=== PATIENT | female | born 1940 | race Caucasian/White ===

== ENCOUNTER 2017-05-05 06:46 | Inpatient (IN) | payer MEDICARE, OTHER ==
[2017-05-05] MEDS ORDERED: PANTOPRAZOLE INJ 80 MG in SODIUM CHLORIDE 0.9% INJ 100 ML IV (07:04)
[2017-05-05] MEDS ORDERED: SODIUM CHLORIDE 0.9% FLUSH 10 ML FLUSH IVF (07:15)
[2017-05-05 07:19] LABS: AUTOMATED NEUTROPHIL # 7.9 TH/MM3 (1.8-7.7); BASOPHIL # 0.1 TH/MM3 (0-0.2); BASOPHIL % 0.8 % (0.0-2.0); EOSINOPHIL # 0.4 TH/MM3 (0-0.4); EOSINOPHIL % 3.7 % (0.0-4.0); HEMATOCRIT 24.6 % (35.0-46.0); HEMO FLAGS DIFF FINAL; HEMOGLOBIN 7.9 GM/DL (11.6-15.3); LYMPHOCYTE # 2.3 TH/MM3 (1.0-4.8); MEAN CELL VOLUME 96.1 FL (80.0-100.0); MEAN CORPUSCULAR HEMOGLOBIN 30.8 PG (27.0-34.0); MEAN PLATELET VOLUME 7.6 FL (7.0-11.0); MONO % 6.2 % (0.0-8.0); MONOCYTE # 0.7 TH/MM3 (0-0.9); NEUT % 69.3 % (16.0-70.0); PLATELET COUNT 295 TH/MM3 (150-450); RED BLOOD COUNT 2.56 MIL/MM3 (4.00-5.30); WHITE BLOOD COUNT 11.4 TH/MM3 (4.0-11.0)
[2017-05-05] MEDS: SODIUM CHLOR 0.9% 250 ML INJ 250 ML IV (07:30)
[2017-05-05 07:35] LABS: CHLORIDE 98 MEQ/L (98-107); POTASSIUM 4.8 MEQ/L (3.5-5.1); SODIUM (NA) 132 MEQ/L (136-145)
[2017-05-05 07:38] LABS: CALCIUM 8.3 MG/DL (8.5-10.1)
[2017-05-05 07:39] LABS: ALBUMIN 2.5 GM/DL (3.4-5.0); ANION GAP 12 MEQ/L (5-15); BICARBONATE 22.5 MEQ/L (21.0-32.0); BLOOD UREA NITROGEN 29 MG/DL (7-18); GLUCOSE,RANDOM 129 MG/DL (74-106); LIPASE 128 U/L (73-393)
[2017-05-05 07:41] LABS: APTT (PATIENT) 24.3 SEC (24.3-30.1); INTERNATIONAL NORMALIZED RATIO 1.1 RATIO; PROTHROMBIN TIME - PATIENT 10.7 SEC (9.8-11.6)
[2017-05-05 07:42] LABS: ALT (GPT) 13 U/L (10-53); AST (GOT) 17 U/L (15-37); CREATININE 0.67 MG/DL (0.50-1.00); GLOMERULAR FILTRATION RATE 85 ML/MIN (>89)
[2017-05-05 07:43] LABS: TOTAL BILIRUBIN ADULT 0.4 MG/DL (0.2-1.0); TOTAL PROTEIN 5.9 GM/DL (6.4-8.2)
[2017-05-05 07:44] LABS: ALKALINE PHOSPHATASE 53 U/L (45-117)
[2017-05-05 08:00] LABS: RBC COMMENT 1 1
[2017-05-05] MEDS: ONDANSETRON HCL 4 MG/2 ML VIAL IV PUSH (08:00)
[2017-05-05] MEDS: PANTOPRAZOLE INJ 80 MG in SODIUM CHLORIDE 0.9% INJ 35 ML IV (08:23)
[2017-05-05] MEDS: LACTATED RINGER'S 1000 ML IV ×2 (08:25→20:25)
[2017-05-05] MEDS: PANTOPRAZOLE INJ 80 MG in SODIUM CHLORIDE 0.9% INJ 100 ML IV ×2 (08:28→21:30)
[2017-05-05] MEDS ORDERED: POVIDONE IODINE 5% (ANTISEPSIS KIT) 4 APPLICATIONS EACH NARE (09:15)
[2017-05-05] MEDS ORDERED: CHLORHEXIDINE GLUCONATE 2 % 1 PACK (2 CLOTHS) TOPICAL (09:15)
[2017-05-05] MEDS ORDERED: METOPROLOL TARTRATE 25 MG TAB PO (09:15)
[2017-05-05] MEDS ORDERED: SODIUM CHLORID 0.9% 500 ML IV (09:15)
[2017-05-05] MEDS ORDERED: POTASSIUM PHOSPHATE INJ 30 MMOL in SODIUM CHLOR 0.9% 250 ML INJ 250 ML IV (11:45)
[2017-05-05] MEDS ORDERED: MAGNESIUM OXIDE 400 MG TAB PO (11:45)
[2017-05-05] MEDS ORDERED: MAGNESIUM SULFATE INJ 2 GM in SODIUM CHLORIDE 0.9% INJ 96 ML IV (11:45)
[2017-05-05] MEDS ORDERED: SODIUM PHOSPHATE INJ 30 MMOL in SODIUM CHLOR 0.9% 250 ML INJ 240 ML IV (11:45)
[2017-05-05] MEDS ORDERED: POTASSIUM CHLOR 20 MEQ PREMIX 100 ML IV ×2 (11:45)
[2017-05-05] MEDS ORDERED: MAGNESIUM SULFATE INJ 4 GM in SODIUM CHLORIDE 0.9% INJ 92 ML IV (11:45)
[2017-05-05] MEDS ORDERED: POTASSIUM CHLOR 40 MEQ PREMIX 100 ML IV ×2 (11:45)
[2017-05-05] MEDS ORDERED: POTASSIUM PHOSPHATE MONOBASIC 500 MG TAB PO/TUBE (11:45)
[2017-05-05] MEDS ORDERED: POTASSIUM PHOSPHATE MONOBASIC 500 MG TAB PO (11:45)
[2017-05-05] MEDS ORDERED: POTASSIUM CHLORIDE 25 MEQ EFFERVESCENT TAB PO (11:45)
[2017-05-05] MEDS ORDERED: ONDANSETRON HCL 4 MG/2 ML VIAL IV PUSH (12:00)
[2017-05-05] MEDS: MISCELLANEOUS NURSING INFORMATION XX (12:00)
[2017-05-05] MEDS ORDERED: SENNOSIDES 8.6 MG TAB PO (12:00)
[2017-05-05] MEDS ORDERED: BISACODYL 10 MG SUPP RECTAL (12:00)
[2017-05-05] MEDS ORDERED: SODIUM CHLORIDE 0.9% FLUSH 10 ML FLUSH IV FLUSH (12:00)
[2017-05-05] MEDS ORDERED: LORazepam 2 MG/ML VIAL IV PUSH (12:00)
[2017-05-05] MEDS ORDERED: LACTULOSE SYRUP 20 GM/30 ML CUP PO (12:00)
[2017-05-05] MEDS ORDERED: CHLORHEXIDINE GLUCONATE 2 % 1 PACK (2 CLOTHS) TOP (12:00)
[2017-05-05] MEDS ORDERED: MAGNESIUM HYDROXIDE SUSP 30 ML CUP PO (12:00)
[2017-05-05] MEDS ORDERED: MAGNESIUM CITRATE SOLN 300 ML BTL PO (14:30)
[2017-05-05 15:29] LABS: MRSA PCR SURVEILLANCE MRSA DETECTED (NOT DETECT)
[2017-05-05] MEDS: IOHEXOL 350 MG/ML 10 ML VIAL (for RAD DIAG) IVCONTRAST (15:34)
[2017-05-05] MEDS: OCTREOTIDE INJ 500 MCG in SODIUM CHLORID 0.9% 500 ML INJ 500 ML IV ×2 (17:05→23:58)
[2017-05-05] MEDS: LATANOPROST 0.005% OPHT SOLN 2.5 ML BTL EACH EYE (20:11)
[2017-05-05] MEDS: TEMAZEPAM 15 MG CAP PO (20:11)
[2017-05-05] MEDS: TIMOLOL MALEATE 0.5% OPHT SOLN 5 ML BTL EACH EYE (20:12)
[2017-05-05] MEDS: SODIUM CHLORIDE 0.9% FLUSH 10 ML FLUSH IV FLUSH (20:12)
[2017-05-05] MEDS: DOCUSATE SODIUM 50 MG/SENNA 8.6 MG TAB PO (20:12)
[2017-05-05 20:23] LABS: AUTOMATED NEUTROPHIL # 8.3 TH/MM3 (1.8-7.7); BASOPHIL % 0.4 % (0.0-2.0); EOSINOPHIL # 0.1 TH/MM3 (0-0.4); EOSINOPHIL % 0.9 % (0.0-4.0); HEMATOCRIT 27.5 % (35.0-46.0); HEMO FLAGS DIFF FINAL; LYMPH % 13.6 % (9.0-44.0); LYMPHOCYTE # 1.5 TH/MM3 (1.0-4.8); MEAN CELL VOLUME 94.3 FL (80.0-100.0); MEAN CORPUSCULAR HEMOGLOBIN 30.9 PG (27.0-34.0); MEAN CORPUSCULAR HGB CONC 32.8 % (32.0-36.0); MEAN PLATELET VOLUME 7.9 FL (7.0-11.0); MONO % 10.2 % (0.0-8.0); MONOCYTE # 1.1 TH/MM3 (0-0.9); NEUT % 74.9 % (16.0-70.0); PLATELET COUNT 212 TH/MM3 (150-450); RED BLOOD COUNT 2.92 MIL/MM3 (4.00-5.30); RED CELL DISTRIBUTION WIDTH 14.3 % (11.6-17.2); WHITE BLOOD COUNT 11.1 TH/MM3 (4.0-11.0)
[2017-05-05 20:40] LABS: ANION GAP 12 MEQ/L (5-15); BICARBONATE 23.5 MEQ/L (21.0-32.0); BLOOD UREA NITROGEN 23 MG/DL (7-18); CALCIUM 8.6 MG/DL (8.5-10.1); CHLORIDE 101 MEQ/L (98-107); CREATININE 0.52 MG/DL (0.50-1.00); GLOMERULAR FILTRATION RATE 114 ML/MIN (>89); GLUCOSE,RANDOM 108 MG/DL (74-106); SODIUM (NA) 136 MEQ/L (136-145)
[2017-05-05 20:51] LABS: POTASSIUM 4.7 MEQ/L (3.5-5.1)
[2017-05-05] MEDS: SODIUM CHLOR 0.9% 1000 ML INJ 1,000 ML IV (21:47)
[2017-05-05] MEDS: HYDROmorphone HCL PF 2 MG/ML VIAL IV (23:40)
[2017-05-06 00:47] LABS: HEMATOCRIT 24.8 % (35.0-46.0); REVIEW FLAG FINAL
[2017-05-06 00:47] LABS: HEMOGLOBIN 8.3 GM/DL (11.6-15.3)
[2017-05-06 00:51] LABS: BILIRUBIN, URINE NEG (NEG); BLOOD, URINE NEG (NEG); COMMENT (UR) CATH-CULT NOT IND; CULTURE IF INDICATED CATH CULTURE NOT IND; GLUCOSE,URINE NEG (NEG); KETONE, URINE 10 mg/dL (NEG); MUCUS URINE FEW /lpf (OCC); NITRITE,URINE NEG (NEG); PH, URINE 6.5 (5.0-8.5); SQUAMOUS EPITHELIAL CELL URINE <1 /hpf (0-5); URINE COLOR LIGHT-YELLOW (YELLW/STRAW); URINE LEUKOCYTE ESTERASE NEG (NEG)
[2017-05-06] MEDS: PANTOPRAZOLE INJ 80 MG in SODIUM CHLORIDE 0.9% INJ 100 ML IV ×3 (04:00→21:14)
[2017-05-06] MEDS: CHLORHEXIDINE GLUCONATE 2 % 1 PACK (2 CLOTHS) TOP (04:00)
[2017-05-06 06:36] LABS: AUTOMATED NEUTROPHIL # 7.1 TH/MM3 (1.8-7.7); BASOPHIL % 0.5 % (0.0-2.0); EOSINOPHIL # 0.2 TH/MM3 (0-0.4); EOSINOPHIL % 2.2 % (0.0-4.0); HEMATOCRIT 24.5 % (35.0-46.0); HEMO FLAGS DIFF FINAL; HEMOGLOBIN 8.2 GM/DL (11.6-15.3); LYMPH % 12.1 % (9.0-44.0); LYMPHOCYTE # 1.1 TH/MM3 (1.0-4.8); MEAN CELL VOLUME 96.2 FL (80.0-100.0); MEAN CORPUSCULAR HEMOGLOBIN 32.2 PG (27.0-34.0); MEAN CORPUSCULAR HGB CONC 33.5 % (32.0-36.0); MEAN PLATELET VOLUME 7.6 FL (7.0-11.0); MONOCYTE # 0.7 TH/MM3 (0-0.9); NEUT % 77.2 % (16.0-70.0); PLATELET COUNT 212 TH/MM3 (150-450); RED BLOOD COUNT 2.55 MIL/MM3 (4.00-5.30); RED CELL DISTRIBUTION WIDTH 14.1 % (11.6-17.2); WHITE BLOOD COUNT 9.2 TH/MM3 (4.0-11.0)
[2017-05-06 06:37] LABS: ANION GAP 8 MEQ/L (5-15); BICARBONATE 23.3 MEQ/L (21.0-32.0); BLOOD UREA NITROGEN 16 MG/DL (7-18); CHLORIDE 104 MEQ/L (98-107); CREATININE 0.44 MG/DL (0.50-1.00); GLOMERULAR FILTRATION RATE 139 ML/MIN (>89); GLUCOSE,RANDOM 111 MG/DL (74-106); MAGNESIUM 1.9 MG/DL (1.5-2.5); POTASSIUM 4.4 MEQ/L (3.5-5.1); SODIUM (NA) 135 MEQ/L (136-145)
[2017-05-06] MEDS: TIMOLOL MALEATE 0.5% OPHT SOLN 5 ML BTL EACH EYE ×2 (08:46→22:03)
[2017-05-06] MEDS: SODIUM CHLORIDE 0.9% FLUSH 10 ML FLUSH IV FLUSH ×2 (08:46→22:04)
[2017-05-06] MEDS: DOCUSATE SODIUM 50 MG/SENNA 8.6 MG TAB PO ×2 (08:46→22:05)
[2017-05-06] MEDS: SODIUM CHLOR 0.9% 1000 ML INJ 1,000 ML IV (09:03)
[2017-05-06] MEDS: HYDROmorphone HCL PF 2 MG/ML VIAL IV ×3 (11:39→20:37)
[2017-05-06 13:05] LABS: HEMATOCRIT 26.9 % (35.0-46.0); REVIEW FLAG FINAL
[2017-05-06 13:05] LABS: HEMOGLOBIN 8.9 GM/DL (11.6-15.3)
[2017-05-06 13:33] LABS: HEMOGLOBIN A1C 5.4 % (4.3-6.0)
[2017-05-06] MEDS: OCTREOTIDE INJ 500 MCG in SODIUM CHLORID 0.9% 500 ML INJ 500 ML IV (14:12)
[2017-05-06] MEDS ORDERED: DEXTROSE 5%-LACTATED RING INJ 1,000 ML IV (15:15)
[2017-05-06] MEDS: DEXTROSE 50% IN WATER 50 ML SYRINGE (16:03)
[2017-05-06] MEDS: D5-NS + KCL 20 MEQ INJ 1,000 ML IV (16:21)
[2017-05-06] MEDS: LATANOPROST 0.005% OPHT SOLN 2.5 ML BTL EACH EYE (21:00)
[2017-05-07] MEDS: OCTREOTIDE INJ 500 MCG in SODIUM CHLORID 0.9% 500 ML INJ 500 ML IV ×2 (03:43→09:10)
[2017-05-07] MEDS: D5-NS + KCL 20 MEQ INJ 1,000 ML IV (03:46)
[2017-05-07] MEDS: CHLORHEXIDINE GLUCONATE 2 % 1 PACK (2 CLOTHS) TOP ×2 (03:48→21:52)
[2017-05-07] MEDS: HYDROmorphone HCL PF 2 MG/ML VIAL IV ×4 (05:43→20:19)
[2017-05-07] MEDS: PANTOPRAZOLE INJ 80 MG in SODIUM CHLORIDE 0.9% INJ 100 ML IV ×2 (06:23→08:00)
[2017-05-07] MEDS: SODIUM CHLORIDE 0.9% FLUSH 10 ML FLUSH IV FLUSH ×2 (09:00→20:18)
[2017-05-07] MEDS: DOCUSATE SODIUM 50 MG/SENNA 8.6 MG TAB PO ×2 (09:09→20:18)
[2017-05-07] MEDS: TIMOLOL MALEATE 0.5% OPHT SOLN 5 ML BTL EACH EYE ×2 (09:10→20:17)
[2017-05-07] MEDS: PANTOPRAZOLE SODIUM 40 MG VIAL IV PUSH (16:19)
[2017-05-07] MEDS: LATANOPROST 0.005% OPHT SOLN 2.5 ML BTL EACH EYE (20:18)
[2017-05-08 08:15] LABS: AUTOMATED NEUTROPHIL # 5.6 TH/MM3 (1.8-7.7); BASOPHIL % 0.2 % (0.0-2.0); EOSINOPHIL # 0.5 TH/MM3 (0-0.4); EOSINOPHIL % 5.8 % (0.0-4.0); HEMO FLAGS DIFF FINAL; HEMOGLOBIN 7.7 GM/DL (11.6-15.3); LYMPH % 16.3 % (9.0-44.0); LYMPHOCYTE # 1.3 TH/MM3 (1.0-4.8); MEAN CELL VOLUME 95.6 FL (80.0-100.0); MEAN CORPUSCULAR HEMOGLOBIN 31.8 PG (27.0-34.0); MEAN CORPUSCULAR HGB CONC 33.2 % (32.0-36.0); MEAN PLATELET VOLUME 8.1 FL (7.0-11.0); MONO % 8.5 % (0.0-8.0); MONOCYTE # 0.7 TH/MM3 (0-0.9); NEUT % 69.2 % (16.0-70.0); PLATELET COUNT 229 TH/MM3 (150-450); RED BLOOD COUNT 2.41 MIL/MM3 (4.00-5.30); RED CELL DISTRIBUTION WIDTH 14.3 % (11.6-17.2); WHITE BLOOD COUNT 8.1 TH/MM3 (4.0-11.0)
[2017-05-08] MEDS: PANTOPRAZOLE SODIUM 40 MG VIAL IV PUSH ×2 (08:53→21:26)
[2017-05-08] MEDS: SODIUM CHLORIDE 0.9% FLUSH 10 ML FLUSH IV FLUSH ×2 (08:53→21:28)
[2017-05-08] MEDS: DOCUSATE SODIUM 50 MG/SENNA 8.6 MG TAB PO ×2 (08:53→21:00)
[2017-05-08] MEDS: HYDROmorphone HCL PF 2 MG/ML VIAL IV ×2 (08:54→21:40)
[2017-05-08 09:00] LABS: ALBUMIN 2.4 GM/DL (3.4-5.0); ALKALINE PHOSPHATASE 47 U/L (45-117); BLOOD UREA NITROGEN 3 MG/DL (7-18); CALCIUM 8.3 MG/DL (8.5-10.1); CREATININE 0.36 MG/DL (0.50-1.00); GLOMERULAR FILTRATION RATE 175 ML/MIN (>89); GLUCOSE,RANDOM 103 MG/DL (74-106); MAGNESIUM 1.6 MG/DL (1.5-2.5); TOTAL PROTEIN 5.4 GM/DL (6.4-8.2)
[2017-05-08] MEDS: TIMOLOL MALEATE 0.5% OPHT SOLN 5 ML BTL EACH EYE ×2 (09:00→21:27)
[2017-05-08 09:01] LABS: ALT (GPT) 12 U/L (10-53); ANION GAP 5 MEQ/L (5-15); AST (GOT) 13 U/L (15-37); BICARBONATE 29.6 MEQ/L (21.0-32.0); CHLORIDE 100 MEQ/L (98-107); POTASSIUM 3.8 MEQ/L (3.5-5.1); SODIUM (NA) 135 MEQ/L (136-145); TOTAL BILIRUBIN ADULT 0.3 MG/DL (0.2-1.0)
[2017-05-08 13:35] LABS: HEMOGLOBIN 7.7 GM/DL (11.6-15.3)
[2017-05-08 13:35] LABS: HEMATOCRIT 22.6 % (35.0-46.0); REVIEW FLAG FINAL
[2017-05-08] MEDS ORDERED: ACETAMINOPHEN 500 MG CPLT PO (17:30)
[2017-05-08] MEDS: ACETAMINOPHEN/HYDROcodone 325 MG/5 MG TAB PO (18:22)
[2017-05-08] MEDS: CHLORHEXIDINE GLUCONATE 2 % 1 PACK (2 CLOTHS) TOP (21:19)
[2017-05-08] MEDS: LATANOPROST 0.005% OPHT SOLN 2.5 ML BTL EACH EYE (21:27)
[2017-05-09] MEDS: diphenhydrAMINE HCL 25 MG CAP PO (01:18)
[2017-05-09] MEDS: ACETAMINOPHEN 325 MG TAB PO (01:21)
[2017-05-09] MEDS: SODIUM CHLOR 0.9% 250 ML INJ 250 ML IV (01:22)
[2017-05-09 02:03] LABS: RBC COMMENT 1 1
[2017-05-09] MEDS: ACETAMINOPHEN/HYDROcodone 325 MG/5 MG TAB PO ×2 (05:44→18:14)
[2017-05-09] MEDS: FUROSEMIDE 20 MG/2 ML VIAL IV PUSH (05:49)
[2017-05-09] MEDS: TIMOLOL MALEATE 0.5% OPHT SOLN 5 ML BTL EACH EYE ×2 (09:00→22:36)
[2017-05-09] MEDS: PANTOPRAZOLE SODIUM 40 MG VIAL IV PUSH ×2 (09:35→20:18)
[2017-05-09] MEDS: DOCUSATE SODIUM 50 MG/SENNA 8.6 MG TAB PO ×2 (09:35→20:17)
[2017-05-09] MEDS: SODIUM CHLORIDE 0.9% FLUSH 10 ML FLUSH IV FLUSH ×2 (09:35→22:36)
[2017-05-09] MEDS ORDERED: SODIUM CHLORID 0.9% 500 ML IV (10:45)
[2017-05-09] MEDS ORDERED: LACTATED RINGER'S 1000 ML IV (10:45)
[2017-05-09] MEDS ORDERED: CHLORHEXIDINE GLUCONATE 2 % 1 PACK (2 CLOTHS) TOPICAL (10:45)
[2017-05-09] MEDS ORDERED: INSULIN HUMAN REGULAR 1,000 UNITS/10 ML VIAL SQ (10:45)
[2017-05-09] MEDS ORDERED: POVIDONE IODINE 5% (ANTISEPSIS KIT) 4 APPLICATIONS EACH NARE (10:45)
[2017-05-09] MEDS ORDERED: METOPROLOL TARTRATE 25 MG TAB PO (10:45)
[2017-05-09] MEDS: PROPOFOL 200 MG/20 ML AMP IV (12:00)
[2017-05-09] MEDS: PHENYLEPH/NS 1000 MCG/10 ML SYR IV (12:00)
[2017-05-09] MEDS ORDERED: DO NOT ADM ANY ANTICOAGULANT DRUGS ×2 (13:40→13:44)
[2017-05-09 14:22] LABS: RBC COMMENT 1 1
[2017-05-09] MEDS: fentaNYL CITRATE 250 MCG/5 ML AMP (14:32)
[2017-05-09] MEDS: MIDAZOLAM HCL 2 MG/2 ML VIAL ×2 (14:32→15:27)
[2017-05-09] MEDS: IODIXANOL 320 MG/ML 50 ML VIAL (for RAD SPEC) I-ARTERIAL (16:15)
[2017-05-09] MEDS ORDERED: ceFAZolin 2 GM PREMIX 50 ML (16:23)
[2017-05-09] MEDS: HYDROmorphone HCL PF 2 MG/ML VIAL IV (20:18)
[2017-05-09] MEDS: LATANOPROST 0.005% OPHT SOLN 2.5 ML BTL EACH EYE (22:36)
[2017-05-10] MEDS: CHLORHEXIDINE GLUCONATE 2 % 1 PACK (2 CLOTHS) TOP (02:57)
[2017-05-10] MEDS: HYDROmorphone HCL PF 2 MG/ML VIAL IV (04:18)
[2017-05-10] MEDS: SODIUM CHLORIDE 0.9% FLUSH 10 ML FLUSH IV FLUSH ×2 (08:49→21:18)
[2017-05-10] MEDS: DOCUSATE SODIUM 50 MG/SENNA 8.6 MG TAB PO ×2 (08:49→21:18)
[2017-05-10] MEDS: PANTOPRAZOLE SODIUM 40 MG VIAL IV PUSH ×2 (08:49→21:18)
[2017-05-10] MEDS: ACETAMINOPHEN/HYDROcodone 325 MG/5 MG TAB PO ×4 (08:50→21:18)
[2017-05-10] MEDS: TIMOLOL MALEATE 0.5% OPHT SOLN 5 ML BTL EACH EYE ×2 (08:57→21:18)
[2017-05-10 08:58] LABS: AUTOMATED NEUTROPHIL # 9.4 TH/MM3 (1.8-7.7); BASOPHIL # 0.1 TH/MM3 (0-0.2); BASOPHIL % 0.5 % (0.0-2.0); EOSINOPHIL # 0.4 TH/MM3 (0-0.4); EOSINOPHIL % 3.4 % (0.0-4.0); HEMATOCRIT 33.3 % (35.0-46.0); HEMO FLAGS DIFF FINAL; HEMOGLOBIN 11.4 GM/DL (11.6-15.3); LYMPH % 8.7 % (9.0-44.0); MEAN CELL VOLUME 86.9 FL (80.0-100.0); MEAN CORPUSCULAR HEMOGLOBIN 29.8 PG (27.0-34.0); MEAN CORPUSCULAR HGB CONC 34.3 % (32.0-36.0); MEAN PLATELET VOLUME 7.4 FL (7.0-11.0); MONOCYTE # 0.8 TH/MM3 (0-0.9); NEUT % 80.4 % (16.0-70.0); PLATELET COUNT 238 TH/MM3 (150-450); RED BLOOD COUNT 3.83 MIL/MM3 (4.00-5.30); RED CELL DISTRIBUTION WIDTH 17.6 % (11.6-17.2); WHITE BLOOD COUNT 11.6 TH/MM3 (4.0-11.0)
[2017-05-10 09:27] LABS: ANION GAP 7 MEQ/L (5-15); BICARBONATE 31.7 MEQ/L (21.0-32.0); BLOOD UREA NITROGEN 12 MG/DL (7-18); CALCIUM 8.5 MG/DL (8.5-10.1); CHLORIDE 96 MEQ/L (98-107); CREATININE 0.34 MG/DL (0.50-1.00); GLOMERULAR FILTRATION RATE 187 ML/MIN (>89); GLUCOSE,RANDOM 75 MG/DL (74-106); POTASSIUM 3.3 MEQ/L (3.5-5.1); SODIUM (NA) 135 MEQ/L (136-145)
[2017-05-10 19:02] LABS: HEMOGLOBIN 11.8 GM/DL (11.6-15.3)
[2017-05-10 19:02] LABS: HEMATOCRIT 33.9 % (35.0-46.0); REVIEW FLAG FINAL
[2017-05-10] MEDS: LATANOPROST 0.005% OPHT SOLN 2.5 ML BTL EACH EYE (21:18)
[2017-05-11] MEDS: CHLORHEXIDINE GLUCONATE 2 % 1 PACK (2 CLOTHS) TOP (02:51)
[2017-05-11] MEDS: ACETAMINOPHEN/HYDROcodone 325 MG/5 MG TAB PO (05:24)
[2017-05-11 07:23] LABS: HEMOGLOBIN 10.9 GM/DL (11.6-15.3)
[2017-05-11 07:23] LABS: HEMATOCRIT 31.3 % (35.0-46.0); REVIEW FLAG FINAL
[2017-05-11] MEDS: PANTOPRAZOLE SODIUM 40 MG VIAL IV PUSH (08:37)
[2017-05-11] MEDS: DOCUSATE SODIUM 50 MG/SENNA 8.6 MG TAB PO (08:37)
[2017-05-11] MEDS: SODIUM CHLORIDE 0.9% FLUSH 10 ML FLUSH IV FLUSH (08:38)
[2017-05-11] MEDS: TIMOLOL MALEATE 0.5% OPHT SOLN 5 ML BTL EACH EYE (08:38)
[2017-05-11] MEDS: POTASSIUM CHLORIDE 10 MEQ CONTROLLED RELEASE TAB PO (09:48)
== END 2017-05-11 11:36 | disposition home health service (06) | DRG 356 ==
LOC: N07A 05-07 21:32 → PHED 06:46 → PHEDA 07:30 → HIME 11:55
PROC: 047534Z Dilation of Superior Mesenteric Artery with Drug-eluting Intraluminal Device, Percutaneous Approach (ICD-10-PCS; principal; 2017-05-05 08:44)
PROC: 0W3P8ZZ Control Bleeding in Gastrointestinal Tract, Via Natural or Artificial Opening Endoscopic (ICD-10-PCS; 2017-05-05 08:44)
PROC: 0W3P8ZZ Control Bleeding in Gastrointestinal Tract, Via Natural or Artificial Opening Endoscopic (ICD-10-PCS; 2017-05-05 08:44)
PROC: 04L23DZ Occlusion of Gastric Artery with Intraluminal Device, Percutaneous Approach (ICD-10-PCS; 2017-05-05 08:44)
PROC: B4141ZZ Fluoroscopy of Superior Mesenteric Artery using Low Osmolar Contrast (ICD-10-PCS; 2017-05-05 08:44)
PROC: 30233N1 Transfusion of Nonautologous Red Blood Cells into Peripheral Vein, Percutaneous Approach (ICD-10-PCS; 2017-05-05 08:44)
DX: K26.4 Chronic or unspecified duodenal ulcer with hemorrhage (principal); R57.1 Hypovolemic shock; D62 Acute posthemorrhagic anemia; K22.10 Ulcer of esophagus without bleeding; E87.1 Hypo-osmolality and hyponatremia; K25.4 Chronic or unspecified gastric ulcer with hemorrhage; K44.9 Diaphragmatic hernia without obstruction or gangrene; I10 Essential (primary) hypertension; M19.90 Unspecified osteoarthritis, unspecified site; I25.10 Atherosclerotic heart disease of native coronary artery without angina pectoris; Z79.82 Long term (current) use of aspirin; E78.5 Hyperlipidemia, unspecified; H40.9 Unspecified glaucoma; N28.9 Disorder of kidney and ureter, unspecified; Z95.5 Presence of coronary angioplasty implant and graft; Z96.641 Presence of right artificial hip joint; M19.91 Primary osteoarthritis, unspecified site; E16.2 Hypoglycemia, unspecified
CPT/HCPCS: 36245; 36247; 36430; 37236; 37244; 74177; 75726; 75774; 76937; 78278; 80048; 80053; 81001; 82948; 83036; 83690; 83735; 84100; 85014; 85018; 85025; 85610; 85730; 86850; 86900; 86901; 86920; 87641; 93005; 94150; 97163-GP; 99152; 99153; 99291-25

== ENCOUNTER 2017-07-30 17:17 | Inpatient (IN) | payer MEDICARE ==
[~2017-07-30] VITALS: Ht 160 cm; Wt 60.5 kg
[2017-07-30] VITALS (7 sets, daily range): BP systolic 99–156; BP diastolic 50–74; PULSE 64–100; RESP 16–20; TEMP 96.4–98.1; O2SAT 95
[~2017-07-30 17:17] MED LIST: FOSA70TA PO; NORC5TAB PO; OCUVTAB4 PO; PROT40TA PO; SIMV40TA PO; TIMO0.5S30 EACH EYE; TRAV0.00 EACH EYE
[2017-07-30] MEDS ORDERED: ATOR40TA16 PO (17:46)
[2017-07-30] MEDS ORDERED: CLOP75TA PO (17:46)
[2017-07-30] MEDS ORDERED: SODIUM CHLORIDE 0.9% FLUSH 10 ML FLUSH IVF PRN (18:00)
--- NOTE | 2017-07-30 18:00 | PD ---
Physical Exam Narrative I was asked by my attending physician to perform laceration repair of scalp laceration Data Data Last Documented VS Vital Signs Date Time Temp Pulse Resp B/P (MAP) Pulse Ox O2 Delivery O2 Flow Rate FiO2 07/30/17 17:38 16 Room Air 07/30/17 17:27 64 156/74 (101) Orders Orders Complete Blood Count With Diff (07/30/17 17:48) Comprehensive Metabolic Panel (07/30/17 17:48) Prothrombin Time / Inr (Pt) (07/30/17 17:48) Act Partial Throm Time (Ptt) (07/30/17 17:48) Chest, Single Ap (07/30/17 17:48) Femur (Ap & Lat/2vws) (07/30/17 17:48) Pelvis, Ap Only (Routine) (07/30/17 17:48) Iv Access Insert/Monitor (07/30/17 17:48) Oximetry (07/30/17 17:48) Sodium Chloride 0.9% Flush (Ns Flush) (07/30/17 18:00) Ct Brain W/O Iv Contrast(Rout) (07/30/17 ) Ct Cerv Spine W/O Contrast (07/30/17 ) MDM Supervised Visit with BIBI: Yes Procedures Procedure Narrative LACERATION LOCATION: Right occipital scalp LENGTH: Approximately 1 cm NUMBER OF STITCHES/CINDY: 4 cindy REPAIR: The area of the laceration was prepped with Betadine and sterilely draped. The wound was copiously irrigated and explored without evidence of foreign body. The wound was closed using staple gun. This was a single layer repair. Patient tolerated the procedure well. Jillian Paz Jul 30, 2017 18:00
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
[2017-07-30 18:16] LABS: AUTOMATED NEUTROPHIL # 23.6 TH/MM3 (1.8-7.7); BASOPHIL % 0.1 % (0.0-2.0); EOSINOPHIL # 0.4 TH/MM3 (0-0.4); EOSINOPHIL % 1.5 % (0.0-4.0); HEMATOCRIT 27.6 % (35.0-46.0); HEMOGLOBIN 8.8 GM/DL (11.6-15.3); LYMPH % 6.7 % (9.0-44.0); LYMPHOCYTE # 1.8 TH/MM3 (1.0-4.8); MEAN CELL VOLUME 89.3 FL (80.0-100.0); MEAN CORPUSCULAR HEMOGLOBIN 28.5 PG (27.0-34.0); MEAN CORPUSCULAR HGB CONC 31.9 % (32.0-36.0); MEAN PLATELET VOLUME 6.7 FL (7.0-11.0); MONO % 3.4 % (0.0-8.0); MONOCYTE # 0.9 TH/MM3 (0-0.9); NEUT % 88.3 % (16.0-70.0); PLATELET COUNT 383 TH/MM3 (150-450); RED BLOOD COUNT 3.09 MIL/MM3 (4.00-5.30); WHITE BLOOD COUNT 26.7 TH/MM3 (4.0-11.0)
[2017-07-30 18:44] LABS: INTERNATIONAL NORMALIZED RATIO 1.1 RATIO; PROTHROMBIN TIME - PATIENT 10.7 SEC (9.8-11.6)
[2017-07-30 19:13] LABS: BLOOD UREA NITROGEN 8 MG/DL (7-18)
[2017-07-30 19:14] LABS: ALBUMIN 2.8 GM/DL (3.4-5.0); ALKALINE PHOSPHATASE 70 U/L (45-117); AST (GOT) 15 U/L (15-37); CREATININE 0.69 MG/DL (0.50-1.00); GLOMERULAR FILTRATION RATE 82 ML/MIN (>89); GLUCOSE,RANDOM 167 MG/DL (74-106); TOTAL PROTEIN 6.6 GM/DL (6.4-8.2)
[2017-07-30 19:15] LABS: ALT (GPT) 22 U/L (10-53); BICARBONATE 20.8 MEQ/L (21.0-32.0); CHLORIDE 96 MEQ/L (98-107); SODIUM (NA) 129 MEQ/L (136-145); TOTAL BILIRUBIN ADULT 0.3 MG/DL (0.2-1.0)
--- NOTE | 2017-07-30 19:24 | PD ---
Data Data Last Documented VS Vital Signs Date Time Temp Pulse Resp B/P (MAP) Pulse Ox O2 Delivery O2 Flow Rate FiO2 07/30/17 20:29 93 18 118/64 (82) 95 Nasal Cannula 2.00 07/30/17 18:00 96.4 Orders Orders Complete Blood Count With Diff (07/30/17 17:48) Comprehensive Metabolic Panel (07/30/17 17:48) Prothrombin Time / Inr (Pt) (07/30/17 17:48) Act Partial Throm Time (Ptt) (07/30/17 17:48) Chest, Single Ap (07/30/17 17:48) Femur (Ap & Lat/2vws) (07/30/17 17:48) Pelvis, Ap Only (Routine) (07/30/17 17:48) Iv Access Insert/Monitor (07/30/17 17:48) Oximetry (07/30/17 17:48) Sodium Chloride 0.9% Flush (Ns Flush) (07/30/17 18:00) Ct Brain W/O Iv Contrast(Rout) (07/30/17 ) Ct Cerv Spine W/O Contrast (07/30/17 ) Elbow, Complete (4 Vws) (07/30/17 ) Sodium Chlor 0.9% 1000 Ml Inj (Ns 1000 M (07/30/17 19:30) Urinalysis - C+S If Indicated (07/30/17 19:47) Admit Order (Ed Use Only) (07/30/17 ) Communications Intern / Telemetry VALERIA.Q8H (07/30/17 20:29) Vital Signs (Adult) Q4H (07/30/17 20:29) Activity Bed Rest (07/30/17 20:29) Labs Laboratory Tests Test 07/30/17 18:08 07/30/17 20:06 White Blood Count 26.7 TH/MM3 Red Blood Count 3.09 MIL/MM3 Hemoglobin 8.8 GM/DL Hematocrit 27.6 % Mean Corpuscular Volume 89.3 FL Mean Corpuscular Hemoglobin 28.5 PG Mean Corpuscular Hemoglobin Concent 31.9 % Red Cell Distribution Width 16.0 % Platelet Count 383 TH/MM3 Mean Platelet Volume 6.7 FL Neutrophils (%) (Auto) 88.3 % Lymphocytes (%) (Auto) 6.7 % Monocytes (%) (Auto) 3.4 % Eosinophils (%) (Auto) 1.5 % Basophils (%) (Auto) 0.1 % Neutrophils # (Auto) 23.6 TH/MM3 Lymphocytes # (Auto) 1.8 TH/MM3 Monocytes # (Auto) 0.9 TH/MM3 Eosinophils # (Auto) 0.4 TH/MM3 Basophils # (Auto) 0.0 TH/MM3 CBC Comment DIFF FINAL Differential Comment Prothrombin Time 10.7 SEC Prothromb Time International Ratio 1.1 RATIO Activated Partial Thromboplast Time 28.7 SEC Blood Urea Nitrogen 8 MG/DL Creatinine 0.69 MG/DL Random Glucose 167 MG/DL Total Protein 6.6 GM/DL Albumin 2.8 GM/DL Calcium Level 9.0 MG/DL Alkaline Phosphatase 70 U/L Aspartate Amino Transf (AST/SGOT) 15 U/L Alanine Aminotransferase (ALT/SGPT) 22 U/L Total Bilirubin 0.3 MG/DL Sodium Level 129 MEQ/L Potassium Level 4.4 MEQ/L Chloride Level 96 MEQ/L Carbon Dioxide Level 20.8 MEQ/L Anion Gap 12 MEQ/L Estimat Glomerular Filtration Rate 82 ML/MIN Urine Collection Type CATH Urine Color YELLOW Urine Turbidity SL CLOUDY Urine pH 6.5 Urine Specific [place] LESS/EQUAL 1.005 Urine Protein NEG mg/dL Urine Glucose (UA) NEG mg/dL Urine Ketones NEG mg/dL Urine Occult Blood TRACE Urine Nitrite POS Urine Bilirubin NEG Urine Urobilinogen 0.2 MG/DL Urine Leukocyte Esterase LARGE Urine RBC 4-9 /hpf Urine WBC 100-200 /hpf Urine WBC Clumps MANY Urine Squamous Epithelial Cells 0-5 /hpf Urine Amorphous Sediment FEW Urine Bacteria MOD /hpf Urine Hyaline Casts 6-9 /lpf Urine Mucus FEW /lpf Microscopic Urinalysis Comment CATH-CULTURE IND MDM Medical Record Reviewed: Yes Supervised Visit with BIBI: No Narrative Course Please refer to the outgoing provider documentation. The patient is 76 years old and had a fall. Pain along the right side of body is reported. I was called to the bedside at 7:20 PM due to low blood pressure, 85/68. Heart rate 90. Patient speaking full sentences with poor dry skin. The abdomen soft nontender. Her records show prior blood pressure measurements of running hypotensive similar to today's. Patient takes no antihypertensive agent. A liter of normal saline was hung at the bedside 7:30 PM. CBC & BMP Diagram 07/30/17 18:08 Total Protein 6.6, Albumin 2.8 L, Calcium Level 9.0, Alkaline Phosphatase 70, Aspartate Amino Transf (AST/SGOT) 15, Alanine Aminotransferase (ALT/SGPT) 22, Total Bilirubin 0.3 Pt has right sided pubic rami fractures. Hemoglobin was obtained May 10 about 3 months prior and at that time it was 10.9. Patient was admitted in April for upper GI bleed. She refused a stool guaiac study at the bedside stating she checks her stool every day and it negative for bleeds. Pt will require admission for monitoring and serial blood work. d/w Dr Peguero BP at 855PM 118/64 with HR of 105 PT considered stable for PO step down unit. Diagnosis Primary Impression: Fall Qualified Codes: W19.XXXA - Unspecified fall, initial encounter Additional Impressions: Fracture of multiple pubic rami Qualified Codes: S32.591A - Other specified fracture of right pubis, initial encounter for closed fracture Hypotension Qualified Codes: I95.9 - Hypotension, unspecified Admitting Information Admitting Physician Requests: Admit Ismael Hendrix MD Jul 30, 2017 19:24
--- NOTE | 2017-07-30 19:25 | RADRPT ---
EXAM DATE/TIME: 07/30/2017 18:52 [facility] COMPARISON: No previous studies available for comparison. INDICATIONS : Fell today and hit head. Pain. RADIATION DOSE: 66.75 CTDIvol (mGy) MEDICAL HISTORY : Cardiovascular disease. Hypertension. Anticoagulant therapy. SURGICAL HISTORY : Coronary artery stent. ENCOUNTER: Initial ACUITY: 1 day PAIN SCALE: 10/10 LOCATION: cranial TECHNIQUE: Multiple contiguous axial images were obtained of the head. Using automated exposure control and adj ustment of the mA and/or kV according to patient size, radiation dose was kept as low as reasonably a chievable to obtain optimal diagnostic quality images. DICOM format image data is available electro nically for review and comparison. FINDINGS: CEREBRUM: The ventricles and cortical sulci are mildly widened. No evidence of midline shift, mass lesion, hem orrhage or acute infarction. There some expansion of the extra-axial spaces over the frontal lobes. POSTERIOR FOSSA: The cerebellum and brainstem are intact. The 4th ventricle is midline. The cerebellopontine angle i s unremarkable. EXTRACRANIAL: The visualized portion of the orbits is intact. There is sphenoid sinus disease. SKULL: The calvaria is intact. No evidence of skull fracture. Right parietal scalp skin cindy are seen. CONCLUSION: 1. No acute intracranial abnormality. 2. Mild atrophy. Tanner Bill MD on July 30, 2017 at 19:20 Board Certified Radiologist. This report was verified electronically.
[2017-07-30] MEDS ORDERED: SODIUM CHLOR 0.9% 1000 ML INJ 1,000 ML IV ONE (19:30)
--- NOTE | 2017-07-30 19:36 | RADRPT ---
EXAM DATE/TIME: 07/30/2017 18:19 [facility] COMPARISON: No previous studies available for comparison. INDICATIONS : Fell from stairs MEDICAL HISTORY : None. SURGICAL HISTORY : right hip ENCOUNTER: Initial ACUITY: 1 day PAIN SCORE: 4/10 LOCATION: Bilateral chest FINDINGS: A single view of the chest demonstrates the lungs to be symmetrically aerated without evidence of mas s, infiltrate or effusion. The cardiomediastinal contours are unremarkable. Osseous structures are intact. There are vascular coils seen in the right upper quadrant. There is a high riding humeral hea d on the right consistent with a rotator cuff abnormality. There is a questionable lucency at the dis ezio right clavicle. CONCLUSION: 1. The lungs are grossly clear. 2. Questionable lucency at the distal right clavicle. This could be further evaluated if this is an a cute clinical site of concern. Tanner Bill MD on July 30, 2017 at 19:30 Board Certified Radiologist. This report was verified electronically.
--- NOTE | 2017-07-30 19:38 | RADRPT ---
EXAM DATE/TIME: 07/30/2017 18:19 [facility] COMPARISON: No previous studies available for comparison. INDICATIONS : Fell from stairs. right elbow pain MEDICAL HISTORY : None. SURGICAL HISTORY : right hip ENCOUNTER: Initial ACUITY: 1 day PAIN SCORE: 4/10 LOCATION: Right elbow FINDINGS: The elbow is normally aligned. A fracture is not seen. No effusion is seen. There is hypertrophic gage nge at the anterior proximal aspect of the ulna at the coronoid process and at the lateral aspect of the radial head. CONCLUSION: No acute abnormality seen. Tanner Bill MD on July 30, 2017 at 19:34 Board Certified Radiologist. This report was verified electronically.
--- NOTE | 2017-07-30 19:39 | RADRPT ---
EXAM DATE/TIME: 07/30/2017 18:19 [facility] COMPARISON: No previous studies available for comparison. INDICATIONS : fell from stairs, right hip area pain MEDICAL HISTORY : None. SURGICAL HISTORY : right hip ENCOUNTER: Initial ACUITY: 1 day PAIN SCORE: 10/10 LOCATION: Right femur FINDINGS: There is a fracturing of the superior and inferior pubic rami. There is a bipolar hip prosthesis on t he right side. This appears well placed. The femur appears intact. There is hypertrophic calcificatio n seen around the hip joint region. Vascular calcifications are seen. CONCLUSION: Fracturing of the superior and inferior pubic rami on the right. Tanner Bill MD on July 30, 2017 at 19:36 Board Certified Radiologist. This report was verified electronically.
--- NOTE | 2017-07-30 19:41 | RADRPT ---
EXAM DATE/TIME: 07/30/2017 18:19 [facility] COMPARISON: No previous studies available for comparison. INDICATIONS : Fell from stairs MEDICAL HISTORY : SURGICAL HISTORY : Right hip ENCOUNTER: Initial ACUITY: 1 day PAIN SCORE: 10/10 LOCATION: Right pelvis FINDINGS: There is a right bipolar hip prosthesis in good position. There is fracturing of the superior and inf erior pubic rami on the right. The bones are osteopenic. Degenerative changes in the lumbar spine. Va scular calcifications are present. CONCLUSION: Fracturing of the right superior and inferior pubic rami. Tanner Bill MD on July 30, 2017 at 19:38 Board Certified Radiologist. This report was verified electronically.
--- NOTE | 2017-07-30 19:55 | RADRPT ---
EXAM DATE/TIME: 07/30/2017 18:52 [facility] COMPARISON: No previous studies available for comparison. INDICATIONS : Fell today and hit head. Pain. RADIATION DOSE: 26.62 CTDIvol (mGy) MEDICAL HISTORY : Cardiovascular disease. Hypertension. Anticoagulant therapy. SURGICAL HISTORY : Coronary artery stent. ENCOUNTER: Initial ACUITY: 1 day PAIN SCALE: 10/10 LOCATION: neck TECHNIQUE: Volumetric scanning of the cervical spine was performed. Multiplanar reconstructions in the sagittal, coronal and oblique axial planes were performed. Using automated exposure control and adjustment o f the mA and/or kV according to patient size, radiation dose was kept as low as reasonably achievable to obtain optimal diagnostic quality images. DICOM format image data is available electronically f or review and comparison. FINDINGS: VERTEBRAE: Normal vertebral body height. ALIGNMENT: There is anterior subluxation of C5 on C6 in the order of 3 mm. There is amorphous increased density seen at the facet joints bilaterally at this level. A similar-appearing amorphous increased density s een adjacent to the C6 spinous process. This is likely related to calcific deposition. C2-C3: The bony spinal canal is normal in size. No evidence of disc bulge or herniation. The neural forami na are bilaterally patent. C3-C4: The bony spinal canal is normal in size. No evidence of disc bulge or herniation. The neural forami na are bilaterally patent. There is calcific density seen in the anterior and anterior right lateral epidural space without mass effect. There is mild facet hypertrophy. C4-C5: The bony spinal canal is normal in size. No evidence of disc bulge or herniation. The neural forami na are bilaterally patent. There is bilateral facet hypertrophy being worse on the left. C5-C6: Again noted is the anterior subluxation of C5 on C6. This is likely secondary to facet hypertrophy. T here is amorphous calcification surrounding the facet joints bilaterally. There is narrowing of the n eural foramina bilaterally. There is some calcification seen in the lateral and posterior epidural sp wendy. C6-C7: The bony spinal canal is normal in size. No evidence of disc bulge or herniation. The neural forami na are bilaterally patent. There is mild right facet hypertrophy. C7-T1: The bony spinal canal is normal in size. No evidence of disc bulge or herniation. The neural forami na are bilaterally patent. T1-T2: The posterior osteophytic ridging centrally causing a mild impression on the thecal sac at this level . CONCLUSION: 1. No acute bony abnormality is seen. 2. Degenerative change as described above. Tanner Bill MD on July 30, 2017 at 19:45 Board Certified Radiologist. This report was verified electronically.
[2017-07-30 20:29] LABS: BILIRUBIN, URINE NEG (NEG); BLOOD, URINE TRACE (NEG); GLUCOSE,URINE NEG (NEG); KETONE, URINE NEG (NEG); NITRITE,URINE POS (NEG); PH, URINE 6.5 (5.0-8.5); URINE COLOR YELLOW (YELLW/STRAW); URINE LEUKOCYTE ESTERASE LARGE (NEG)
[2017-07-30 20:44] LABS: BACTERIA, URINE MOD /hpf; MUCUS URINE FEW /lpf (OCC); SQUAMOUS EPITHELIAL CELL URINE 0-5 /hpf (0-5); WBC, URINE 100-200 /hpf (0-5); WHITE BLOOD CELL CLUMPS MANY
[2017-07-30 20:45] LABS: AMORPHOUS SEDIMENT, URINE FEW
[2017-07-30] MEDS ORDERED: ACETAMINOPHEN 325 MG TAB PO PRN (20:45)
[2017-07-30] MEDS ORDERED: MAGNESIUM HYDROXIDE SUSP 30 ML CUP PO PRN (20:45)
[2017-07-30] MEDS ORDERED: SODIUM CHLORIDE 0.9% FLUSH 10 ML FLUSH IV FLUSH PRN (20:45)
[2017-07-30] MEDS ORDERED: SENNOSIDES 8.6 MG TAB PO PRN (20:45)
[2017-07-30] MEDS ORDERED: ONDANSETRON HCL 4 MG/2 ML VIAL IVP PRN (20:45)
[2017-07-30] MEDS ORDERED: BISACODYL 10 MG SUPP RECTAL PRN (20:45)
[2017-07-30] MEDS ORDERED: LACTULOSE SYRUP 20 GM/30 ML CUP PO PRN (20:45)
[2017-07-30] MEDS: ACETAMINOPHEN/HYDROcodone 325 MG/10 MG TAB PO PRN (20:58)
[2017-07-30] MEDS: SODIUM CHLOR 0.9% 1000 ML INJ 1,000 ML IV SCH (20:59)
[2017-07-30] MEDS: SODIUM CHLORIDE 0.9% FLUSH 10 ML FLUSH IV FLUSH SCH (21:00)
[2017-07-30] MEDS: ATORVASTATIN 40 MG TAB PO SCH (21:54)
[2017-07-30] MEDS: TIMOLOL MALEATE 0.5% OPHT SOLN 5 ML BTL EACH EYE SCH (21:54)
[2017-07-30] MEDS: DOCUSATE SODIUM 50 MG/SENNA 8.6 MG TAB PO SCH (21:54)
[2017-07-31] VITALS (23 sets, daily range): BP systolic 90–159; BP diastolic 40–71; PULSE 70–112; RESP 16–38; TEMP 97.4–98.7; O2SAT 92–98
[2017-07-31] MEDS: ACETAMINOPHEN/HYDROcodone 325 MG/5 MG TAB PO PRN ×2 (00:24→17:28)
[2017-07-31] MEDS ORDERED: SODIUM CHLORID 0.9% 500 ML INJ 500 ML IV ONE (04:15)
[2017-07-31] MEDS: SODIUM CHLOR 0.9% 1000 ML INJ 1,000 ML IV SCH ×2 (04:20→18:01)
[2017-07-31 04:37] LABS: AUTOMATED NEUTROPHIL # 8.4 TH/MM3 (1.8-7.7); BASOPHIL % 0.2 % (0.0-2.0); EOSINOPHIL # 0.1 TH/MM3 (0-0.4); EOSINOPHIL % 1.1 % (0.0-4.0); LYMPH % 12.8 % (9.0-44.0); LYMPHOCYTE # 1.3 TH/MM3 (1.0-4.8); MEAN CELL VOLUME 88.3 FL (80.0-100.0); MEAN CORPUSCULAR HEMOGLOBIN 29.1 PG (27.0-34.0); MEAN CORPUSCULAR HGB CONC 32.9 % (32.0-36.0); MONO % 4.4 % (0.0-8.0); MONOCYTE # 0.4 TH/MM3 (0-0.9); NEUT % 81.5 % (16.0-70.0); PLATELET COUNT 286 TH/MM3 (150-450); RED BLOOD COUNT 2.37 MIL/MM3 (4.00-5.30); RED CELL DISTRIBUTION WIDTH 16.3 % (11.6-17.2); WHITE BLOOD COUNT 10.2 TH/MM3 (4.0-11.0)
[2017-07-31 04:44] LABS: HEMOGLOBIN 6.9 GM/DL (11.6-15.3)
[2017-07-31 04:45] LABS: HEMATOCRIT 20.9 % (35.0-46.0)
[2017-07-31 04:57] LABS: CHLORIDE 101 MEQ/L (98-107); SODIUM (NA) 133 MEQ/L (136-145)
[2017-07-31] MEDS ORDERED: SODIUM CHLOR 0.9% 250 ML INJ 250 ML IV ONE (05:00)
[2017-07-31 05:01] LABS: ALBUMIN 2.4 GM/DL (3.4-5.0); BLOOD UREA NITROGEN 9 MG/DL (7-18); CALCIUM 7.9 MG/DL (8.5-10.1); GLUCOSE,RANDOM 96 MG/DL (74-106)
[2017-07-31 05:04] LABS: ALT (GPT) 17 U/L (10-53); AST (GOT) 14 U/L (15-37); CREATININE 0.48 MG/DL (0.50-1.00); GLOMERULAR FILTRATION RATE 125 ML/MIN (>89)
[2017-07-31 05:06] LABS: TOTAL BILIRUBIN ADULT 0.4 MG/DL (0.2-1.0); TOTAL PROTEIN 5.4 GM/DL (6.4-8.2)
[2017-07-31 05:07] LABS: ALKALINE PHOSPHATASE 55 U/L (45-117)
[2017-07-31] MEDS: cefTRIAXone INJ 1,000 MG in SODIUM CHLORIDE 0.9% INJ 100 ML IV SCH (05:22)
[2017-07-31] MEDS: TIMOLOL MALEATE 0.5% OPHT SOLN 5 ML BTL EACH EYE SCH ×2 (08:41→20:17)
[2017-07-31] MEDS: SODIUM CHLORIDE 0.9% FLUSH 10 ML FLUSH IV FLUSH SCH ×2 (08:42→20:17)
[2017-07-31] MEDS: DOCUSATE SODIUM 50 MG/SENNA 8.6 MG TAB PO SCH ×2 (08:43→20:18)
[2017-07-31] MEDS ORDERED: KETOROLAC TROMETHAMINE 60 MG/2 ML (IM) VIAL IM PRN (13:30)
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
[2017-07-31] MEDS ORDERED: LATA0.002 EACH EYE (15:43)
[2017-07-31 16:01] LABS: HEMATOCRIT 26.6 % (35.0-46.0); HEMOGLOBIN 8.6 GM/DL (11.6-15.3)
[2017-07-31] MEDS: ATORVASTATIN 40 MG TAB PO SCH (20:18)
[2017-07-31] MEDS: LATANOPROST 0.005% OPHT SOLN 2.5 ML BTL EACH EYE SCH (20:18)
[2017-07-31] MEDS: ACETAMINOPHEN/HYDROcodone 325 MG/10 MG TAB PO PRN (22:57)
[2017-08-01] VITALS (22 sets, daily range): BP systolic 92–148; BP diastolic 45–78; PULSE 80–120; RESP 14–23; TEMP 97.5–98.2; O2SAT 72–97
[2017-08-01] MEDS: SODIUM CHLOR 0.9% 1000 ML INJ 1,000 ML IV SCH (03:50)
[2017-08-01] MEDS: ACETAMINOPHEN/HYDROcodone 325 MG/10 MG TAB PO PRN ×4 (03:53→20:15)
[2017-08-01] MEDS: cefTRIAXone INJ 1,000 MG in SODIUM CHLORIDE 0.9% INJ 100 ML IV SCH (06:30)
[2017-08-01] MEDS: CLOPIDOGREL 75 MG TAB PO SCH (08:06)
[2017-08-01] MEDS: DOCUSATE SODIUM 50 MG/SENNA 8.6 MG TAB PO SCH ×2 (08:06→20:15)
[2017-08-01] MEDS: SODIUM CHLORIDE 0.9% FLUSH 10 ML FLUSH IV FLUSH SCH ×2 (08:07→19:32)
[2017-08-01] MEDS: TIMOLOL MALEATE 0.5% OPHT SOLN 5 ML BTL EACH EYE SCH ×2 (08:07→20:16)
[2017-08-01] MEDS ORDERED: FUROSEMIDE 40 MG/4 ML VIAL IV PUSH ONE (11:00)
--- NOTE | 2017-08-01 12:05 | RADRPT ---
EXAM DATE/TIME: 08/01/2017 11:32 [facility] COMPARISON: CHEST SINGLE AP, July 30, 2017, 18:19. INDICATIONS : Short of breath. MEDICAL HISTORY : Cardiovascular disease. Hypertension. Anticoagulant therapy. SURGICAL HISTORY : Coronary artery stent. ENCOUNTER: Subsequent ACUITY: 2 days PAIN SCORE: 0/10 LOCATION: chest FINDINGS: Portable AP view of the chest demonstrates a normal-sized cardiac silhouette with calcification of th e aorta. Lungs are underinflated with mild bilateral basilar opacity and slight blunting of the costo phrenic sulci. There is stable linear scar in the right midlung zone. No pneumothorax is visualized. The bones demonstrate no acute abnormality. CONCLUSION: Mild bilateral basilar opacity representing either atelectasis or consolidation with suspected small bilateral pleural effusions. Tanner Boss MD on August 01, 2017 at 12:03 Board Certified Radiologist. This report was verified electronically.
--- NOTE | 2017-08-01 13:27 | HHI.PR ---
Subjective Remarks patient seen and evaluated in follow-up for anemia with hypotension after a fall. Patient is hypoxemic overnight after blood transfusion and after IV hydration weight appears to have gone from 55-59 kg. Chest x-ray is abnormal. Case discussed with [employer] and patient Objective Vitals Vital Signs Date Time Temp Pulse Resp B/P (MAP) Pulse Ox O2 Delivery O2 Flow Rate FiO2 08/01/17 12:00 82 15 103/62 (76) 92 08/01/17 12:00 82 08/01/17 10:00 82 22 102/52 (69) 94 08/01/17 09:50 82 22 72 08/01/17 09:45 80 15 95 08/01/17 09:30 82 14 97 08/01/17 09:20 88 16 93 08/01/17 08:50 90 21 73 08/01/17 08:48 88 14 84 08/01/17 08:45 90 14 75 08/01/17 08:00 92 08/01/17 08:00 97.9 92 17 113/78 (90) 96 08/01/17 04:00 98.0 98 20 118/65 (82) 95 08/01/17 04:00 88 08/01/17 03:02 94 20 127/59 (81) 96 08/01/17 00:38 98 20 116/54 (74) 93 08/01/17 00:04 97.5 96 21 97/45 (62) 94 08/01/17 00:00 98 07/31/17 20:06 98 25 103/48 (66) 98 07/31/17 20:05 98.7 96 23 98/49 (65) 98 07/31/17 20:00 95 07/31/17 19:45 98 Nasal Cannula 2.00 07/31/17 19:03 30 07/31/17 19:01 98 26 95/48 (64) 92 07/31/17 17:28 23 07/31/17 17:00 100 20 114/51 (72) 96 07/31/17 17:00 104 07/31/17 16:00 112 25 116/55 (75) 97 07/31/17 16:00 112 07/31/17 15:00 112 07/31/17 15:00 112 23 159/62 (94) 96 07/31/17 14:00 108 28 141/62 (88) 96 07/31/17 14:00 102 I/O 07/31/17 07/31/17 07/31/17 08/01/17 08/01/17 08/01/17 06:59 14:59 22:59 06:59 14:59 22:59 Intake Total 1656 ml 360 ml 1460 ml 1260 ml 220 ml Output Total 600 ml 1000 ml Balance 1056 ml 360 ml 460 ml 1260 ml 220 ml Intake Oral 600 ml 220 ml IV Total 1656 ml 860 ml 1260 ml Packed Cells 320 ml Blood Product IV Normal Saline Flush 40 ml Output Urine Total 600 ml 1000 ml # Voids 2 # Bowel Movements 0 0 Result Diagram: 07/31/17 1530 07/31/17 0415 A/P Problem List: (1) Fracture of multiple pubic rami ICD Code: S32.599A - Other specified fracture of unspecified pubis, initial encounter for closed fracture Status: Acute Plan: Secondary to fall Continue with rehab plans Pain control with Toradol until blood pressures improved (2) Anemia ICD Code: D64.9 - Anemia, unspecified Plan: resolved after transfusion (3) Vascular disease ICD Code: I99.9 - Unspecified disorder of circulatory system Plan: cont plavix and watch for bleeding (4) Hypoxemia ICD Code: R09.02 - Hypoxemia Plan: Patient is likely volume overloaded secondary to IV hydration and blood transfusion products Diuresis gently Follow hemoglobin (5) Hypotension ICD Code: I95.9 - Hypotension, unspecified Status: Acute Plan: We will follow closely in the ICU given patient's initial bleeding issues Follow-up repeat hemoglobin (6) UTI (urinary tract infection) ICD Code: N39.0 - Urinary tract infection, site not specified Plan: Continue IV antibiotics for Klebsiella pneumonia sensitive to Rocephin Discharge Planning to rehab when stable Problem Qualifiers (1) Fracture of multiple pubic rami: Qualified Codes: S32.591A - Other specified fracture of right pubis, initial encounter for closed fracture (2) Hypotension: Qualified Codes: I95.9 - Hypotension, unspecified Opal Chua MD Aug 01, 2017 13:27
[2017-08-01 13:47] LABS: HEMATOCRIT 25.8 % (35.0-46.0); HEMOGLOBIN 8.1 GM/DL (11.6-15.3)
[2017-08-01] MEDS: FUROSEMIDE 20 MG/2 ML VIAL IV PUSH SCH (19:32)
[2017-08-01] MEDS: LATANOPROST 0.005% OPHT SOLN 2.5 ML BTL EACH EYE SCH (20:16)
[2017-08-01] MEDS: ATORVASTATIN 40 MG TAB PO SCH (20:16)
[2017-08-02] VITALS (26 sets, daily range): BP systolic 100–140; BP diastolic 49–79; PULSE 79–109; RESP 12–42; TEMP 98–99; O2SAT 88–100
[2017-08-02] MEDS: ACETAMINOPHEN/HYDROcodone 325 MG/10 MG TAB PO PRN ×5 (02:43→20:33)
[2017-08-02 05:17] LABS: AUTOMATED NEUTROPHIL # 7.3 TH/MM3 (1.8-7.7); BASOPHIL % 0.3 % (0.0-2.0); EOSINOPHIL # 0.7 TH/MM3 (0-0.4); EOSINOPHIL % 7.5 % (0.0-4.0); HEMATOCRIT 23.5 % (35.0-46.0); HEMOGLOBIN 7.9 GM/DL (11.6-15.3); LYMPH % 11.8 % (9.0-44.0); LYMPHOCYTE # 1.2 TH/MM3 (1.0-4.8); MEAN CELL VOLUME 87.7 FL (80.0-100.0); MEAN CORPUSCULAR HEMOGLOBIN 29.4 PG (27.0-34.0); MEAN CORPUSCULAR HGB CONC 33.5 % (32.0-36.0); MEAN PLATELET VOLUME 6.7 FL (7.0-11.0); MONO % 7.5 % (0.0-8.0); MONOCYTE # 0.7 TH/MM3 (0-0.9); NEUT % 72.9 % (16.0-70.0); PLATELET COUNT 223 TH/MM3 (150-450); RED BLOOD COUNT 2.68 MIL/MM3 (4.00-5.30); WHITE BLOOD COUNT 9.9 TH/MM3 (4.0-11.0)
[2017-08-02 05:29] LABS: CALCIUM 8.1 MG/DL (8.5-10.1)
[2017-08-02 05:31] LABS: BICARBONATE 27.9 MEQ/L (21.0-32.0)
[2017-08-02 05:33] LABS: CREATININE 0.39 MG/DL (0.50-1.00)
[2017-08-02] MEDS: cefTRIAXone INJ 1,000 MG in SODIUM CHLORIDE 0.9% INJ 100 ML IV SCH (06:10)
[2017-08-02] MEDS: DOCUSATE SODIUM 50 MG/SENNA 8.6 MG TAB PO SCH ×2 (08:11→20:33)
[2017-08-02] MEDS: FUROSEMIDE 20 MG/2 ML VIAL IV PUSH SCH (08:16)
[2017-08-02] MEDS: SODIUM CHLORIDE 0.9% FLUSH 10 ML FLUSH IV FLUSH SCH ×2 (08:16→21:02)
[2017-08-02] MEDS: TIMOLOL MALEATE 0.5% OPHT SOLN 5 ML BTL EACH EYE SCH ×2 (08:16→21:34)
[2017-08-02] MEDS: CLOPIDOGREL 75 MG TAB PO SCH ×2 (08:23→12:17)
[2017-08-02] MEDS ORDERED: FUROSEMIDE 20 MG/2 ML VIAL IV PUSH SCH (09:00)
[2017-08-02] MEDS ORDERED: SODIUM CHLOR 0.9% 250 ML INJ 250 ML IV ONE (12:00)
[2017-08-02] MEDS ORDERED: FUROSEMIDE 20 MG/2 ML VIAL IV PUSH ONE (12:00)
--- NOTE | 2017-08-02 12:05 | HHI.PR ---
Subjective Remarks Patient is a 76-year-old female seen again today in follow-up for anemia and for hypotension and for hypoxemia Hemoglobin 7.9 Oxygenation in the 80s No active bleeding noted. Patient also has requested to increase her activity and she has requested to have physical therapy aggressively here in the hospital Objective Vitals Vital Signs Date Time Temp Pulse Resp B/P (MAP) Pulse Ox O2 Delivery O2 Flow Rate FiO2 08/02/17 08:18 98.3 98 32 107/62 (77) 08/02/17 08:00 109 08/02/17 08:00 102 42 08/02/17 08:00 102 42 08/02/17 07:20 2.00 08/02/17 07:10 98 Nasal Cannula 2.00 08/02/17 07:00 94 29 96 08/02/17 04:00 98.8 100 15 111/56 (74) 95 08/02/17 04:00 100 08/02/17 00:00 98.8 100 15 139/73 (95) 96 08/02/17 00:00 103 08/01/17 21:00 106 19 08/01/17 20:00 98.2 120 18 116/73 (87) 94 08/01/17 20:00 112 08/01/17 20:00 94 Nasal Cannula 2.00 08/01/17 19:00 112 18 148/66 (93) 97 08/01/17 16:00 97.8 88 19 105/61 (76) 08/01/17 16:00 88 08/01/17 15:00 86 23 136/63 (87) 08/01/17 14:00 97.8 82 15 93/53 (66) 08/01/17 13:00 80 15 92/57 (69) 92 I/O 08/01/17 08/01/17 08/01/17 08/02/17 08/02/17 08/02/17 06:59 14:59 22:59 06:59 14:59 22:59 Intake Total 1260 ml 820 ml 360 ml 120 ml Output Total 300 ml 1300 ml Balance 1260 ml 820 ml 60 ml -1180 ml Intake Oral 220 ml 360 ml 120 ml IV Total 1260 ml 600 ml Output Urine Total 300 ml 1300 ml # Voids 2 3 # Bowel Movements 0 1 0 Result Diagram: 08/02/17 0445 08/02/17 0445 Imaging Last Impressions Chest X-Ray 08/01/17 0000 Signed Impressions: Service Date/Time: Tuesday, August 01, 2017 11:32 - CONCLUSION: Mild bilateral basilar opacity representing either atelectasis or consolidation with suspected small bilateral pleural effusions. Tanner Boss MD Pelvis X-Ray 07/30/17 1748 Signed Impressions: Service Date/Time: Sunday, July 30, 2017 18:19 - CONCLUSION: Fracturing of the right superior and inferior pubic rami. Tanner Bill MD Femur X-Ray 07/30/17 1748 Signed Impressions: Service Date/Time: Sunday, July 30, 2017 18:19 - CONCLUSION: Fracturing of the superior and inferior pubic rami on the right. Tanner Bill MD Head CT 07/30/17 0000 Signed Impressions: Service Date/Time: Sunday, July 30, 2017 18:52 - CONCLUSION: 1. No acute intracranial abnormality. 2. Mild atrophy. Tanner Bill MD Elbow X-Ray 07/30/17 0000 Signed Impressions: Service Date/Time: Sunday, July 30, 2017 18:19 - CONCLUSION: No acute abnormality seen. Tanner Bill MD Cervical Spine CT 07/30/17 0000 Signed Impressions: Service Date/Time: Sunday, July 30, 2017 18:52 - CONCLUSION: 1. No acute bony abnormality is seen. 2. Degenerative change as described above. Tanner Bill MD Objective Remarks GENERAL: This is a well-nourished, well-developed patient, desiring to increase her physical therapy CARDIOVASCULAR: Regular rate and rhythm without murmurs, gallops, or rubs. RESPIRATORY:, Some tachypnea decreased breath sounds bilaterally GASTROINTESTINAL: Abdomen soft, non-tender, nondistended. Normal active bowel sounds MUSCULOSKELETAL: Extremities without clubbing, cyanosis, or edema. NEURO: Alert & Oriented x4 to person, place, time, situation. Moves all ext x4 A/P Problem List: (1) Fracture of multiple pubic rami ICD Code: S32.599A - Other specified fracture of unspecified pubis, initial encounter for closed fracture Status: Acute Plan: Secondary to fall Continue with rehab plans Pain control with Toradol until blood pressures improved (2) Anemia ICD Code: D64.9 - Anemia, unspecified Plan: Patient still with a hemoglobin 7.9, tachycardia and hypotension with hypoxemia We will transfuse 2 units packed red blood cells with Lasix and follow (3) Vascular disease ICD Code: I99.9 - Unspecified disorder of circulatory system Plan: cont plavix and watch for bleeding (4) Hypoxemia ICD Code: R09.02 - Hypoxemia (5) Hypotension ICD Code: I95.9 - Hypotension, unspecified Status: Acute Plan: Likely secondary to anemia and patient will need blood transfusion (6) UTI (urinary tract infection) ICD Code: N39.0 - Urinary tract infection, site not specified Plan: Continue IV antibiotics for Klebsiella pneumonia sensitive to Rocephin Discharge Planning to inpatient rehab when stable Problem Qualifiers (1) Fracture of multiple pubic rami: Qualified Codes: S32.591A - Other specified fracture of right pubis, initial encounter for closed fracture (2) Hypotension: Qualified Codes: I95.9 - Hypotension, unspecified Opal Chua MD Aug 02, 2017 12:05
[2017-08-02] MEDS: KETOROLAC TROMETHAMINE 30 MG/ML (IVP) VIAL IV PUSH PRN (12:09)
[2017-08-02] MEDS ORDERED: IOHEXOL 350 MG/ML 10 ML VIAL (for RAD DIAG) IVCONTRAST ONE (15:20)
--- NOTE | 2017-08-02 15:32 | RADRPT ---
EXAM DATE/TIME: 08/02/2017 15:09 [facility] COMPARISON: No previous studies available for comparison. INDICATIONS : Short of breath. IV CONTRAST: 65 cc Omnipaque 350 (iohexol) IV RADIATION DOSE: 9.17 CTDIvol (mGy) MEDICAL HISTORY : Cardiovascular disease. Ulcers. Hernia, hiatal.Hypertension. SURGICAL HISTORY : Coronary artery stent. ENCOUNTER: Initial ACUITY: 2 days PAIN SCALE: 0/10 LOCATION: Bilateral chest TECHNIQUE: Volumetric scanning of the chest was performed using a pulmonary embolism protocol MIP images were re constructed. Using automated exposure control and adjustment of the mA and/or kV according to patien t size, radiation dose was kept as low as reasonably achievable to obtain optimal diagnostic quality images. DICOM format image data is available electronically for review and comparison. Follow-up recommendations for detected pulmonary nodules are based at a minimum on nodule size and pa tient risk factors according to Fleischner Society Guidelines. FINDINGS: PULMONARY ARTERIES: No filling defects are seen in the pulmonary arteries through the segmental level. LUNGS: Patchy airspace disease is seen in both the right and left lungs without consolidation. There is no significant pleural effusion. MEDIASTINUM: There is no axillary or mediastinal adenopathy. Moderate coronary calcifications are evident includi ng LAD. MUSCULOSKELETAL: Degenerative changes are present in the thoracic spine. MISCELLANEOUS: The visualized upper abdominal organs demonstrate no acute abnormality. CONCLUSION: Negative for central pulmonary emboli Patchy airspace disease in both lungs without pleural effusion. Marked LAD calcifications. Jeb Topete MD FACR on August 02, 2017 at 15:28 Board Certified Radiologist. This report was verified electronically.
[2017-08-02] MEDS: ACETAMINOPHEN 325 MG TAB PO PRN ×2 (15:42→21:37)
[2017-08-02] MEDS: LATANOPROST 0.005% OPHT SOLN 2.5 ML BTL EACH EYE SCH (20:33)
[2017-08-02] MEDS: ATORVASTATIN 40 MG TAB PO SCH (20:33)
[2017-08-03] VITALS (17 sets, daily range): BP systolic 112–173; BP diastolic 63–87; PULSE 80–106; RESP 13–31; TEMP 97.9–98.8; O2SAT 94–100
[2017-08-03] MEDS: cefTRIAXone INJ 1,000 MG in SODIUM CHLORIDE 0.9% INJ 100 ML IV SCH (05:08)
[2017-08-03] MEDS: KETOROLAC TROMETHAMINE 30 MG/ML (IVP) VIAL IV PUSH PRN (08:11)
[2017-08-03] MEDS: FUROSEMIDE 20 MG/2 ML VIAL IV PUSH SCH (08:11)
[2017-08-03] MEDS: TIMOLOL MALEATE 0.5% OPHT SOLN 5 ML BTL EACH EYE SCH (08:11)
[2017-08-03] MEDS: DOCUSATE SODIUM 50 MG/SENNA 8.6 MG TAB PO SCH (08:11)
[2017-08-03] MEDS: ACETAMINOPHEN/HYDROcodone 325 MG/10 MG TAB PO PRN ×3 (08:12→16:19)
[2017-08-03] MEDS: SODIUM CHLORIDE 0.9% FLUSH 10 ML FLUSH IV FLUSH SCH (08:12)
[2017-08-03] MEDS: CLOPIDOGREL 75 MG TAB PO SCH (08:12)
[2017-08-03] MEDS ORDERED: SENN187 PO (11:49)
--- NOTE | 2017-08-03 11:50 | HHI.DCPOC ---
Discharge Care Plan Diagnosis: (1) Anemia (2) UTI (urinary tract infection) Goals to Promote Your Health * To prevent worsening of your condition and complications * To maintain your health at the optimal level Directions to Meet Your Goals Take your medications as prescribed Follow your dietary instruction Follow activity as directed Keep your appointments as scheduled Take your immunizations and boosters as scheduled If your symptoms worsen call your PCP, if no PCP go to Urgent Care Center or Emergency Room Smoking is Dangerous to Your Health. Avoid second hand smoke Call the 24-hour hour crisis hotline for domestic abuse at Opal Chua MD Aug 03, 2017 11:50
[2017-08-03] MEDS ORDERED: CIPR-9 PO (11:51)
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
[2017-08-03] MEDS ORDERED: TYLETAB34 PO (15:27)
[2017-08-03] MEDS ORDERED: KETOROLAC TROMETHAMINE 30 MG/ML (IVP) VIAL IV PUSH ONE (15:30)
== END 2017-08-03 17:40 | DRG 536 ==
LOC: PHED 17:17 → PHEDA 20:31 → PHICU 22:00
PROVIDERS: ADMIT Hospitalist; ATTEND Hospitalist
PROC: 0HQ0XZZ Repair Scalp Skin, External Approach (ICD-10-PCS; principal; 2017-07-30)
PROC: 30233N1 Transfusion of Nonautologous Red Blood Cells into Peripheral Vein, Percutaneous Approach (ICD-10-PCS; 2017-07-31)
DX: S32.591A Other specified fracture of right pubis, initial encounter for closed fracture (principal); I95.9 Hypotension, unspecified; D62 Acute posthemorrhagic anemia; N39.0 Urinary tract infection, site not specified; E87.70 Fluid overload, unspecified; I10 Essential (primary) hypertension; S01.01XA Laceration without foreign body of scalp, initial encounter; H40.9 Unspecified glaucoma; I25.10 Atherosclerotic heart disease of native coronary artery without angina pectoris; M19.90 Unspecified osteoarthritis, unspecified site; Z79.01 Long term (current) use of anticoagulants; Z79.82 Long term (current) use of aspirin; E78.00 Pure hypercholesterolemia, unspecified; K44.9 Diaphragmatic hernia without obstruction or gangrene; Z82.49 Family history of ischemic heart disease and other diseases of the circulatory system; Z95.5 Presence of coronary angioplasty implant and graft; W19.XXXA Unspecified fall, initial encounter; Y93.89 Activity, other specified; Y92.007 Garden or yard of unspecified non-institutional (private) residence as the place of occurrence of the external cause; Y99.9 Unspecified external cause status; R09.02 Hypoxemia; I73.9 Peripheral vascular disease, unspecified
CPT/HCPCS: 12001; 36430; 36600; 70450; 71045; 71275; 72125; 72170; 73080; 73552; 80048; 80053; 81001; 82272; 82805; 85014; 85018; 85025; 85610; 85730; 86077; 86850; 86870; 86900; 86901; 86902; 86920; 86922; 87077; 87086; 87186; 94618; 96360; J0696; J1885; J1940; J7030; J7040; J7050; P9016; Q9967